=== PATIENT | male | born 1985 | race African-American/Black ===

== ENCOUNTER 2019-01-13 17:10 | Emergency (ER) | payer SELFPAY ==
[~2019-01-13] VITALS: Ht 167.6 cm; Wt 63.5 kg
--- NOTE | 2019-01-13 17:20 | NUR ---
ED Nurse Note: Pt present at ER c/o LUE pain 06/24. pt aao x4 and calm. skin clean and intact and ambulatory with steady gait.
[2019-01-13 17:30] VITALS: BP 152/101
[2019-01-13] MEDS ORDERED: Ketorolac 30mg Inj IM ONE (17:45)
[2019-01-13] MEDS ORDERED: LIDOCAINE700 M1 TP (17:47)
[2019-01-13] MEDS ORDERED: IBUPROFEN600 MG ORAL (17:47)
--- NOTE | 2019-01-13 17:48 | Emergency Room Report ---
History of Present Illness General Chief Complaint: Pain Source: Patient Present Illness HPI 33-year-old male patient presents the ER complaining of left upper extremity pain for the past 2 weeks. Reports that the pain radiates from his neck to his shoulder and down his arm. Reports pain is intermittent. Denies acute injury or trauma. 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 Denies history of diabetes. Denies fever, chest pain, shortness of breath. Does not have any complaints of tiredness contrary to triage report. States his been taking Tylenol twice a day for relief of symptoms. Denies other aggravating or relieving factors. Also complaining of flulike symptoms during this time. Reports subjective fever and chills at home, afebrile in ER. Denies chest pain or shortness of breath. Denies abdominal pain. Denies vomiting or diarrhea. Denies recent travel outside the country. Reports up-to-date on vaccinations. Reports received flu vaccination. Reports that he had recent sexual activity with someone else. Reports lesion on his penis and in his mouth. Reports lesions were painful, states that there was a blister that he popped. Denies dysuria, hematuria, penile discharge. Denies testicular pain or swelling. Denies IV drug use. Denies diabetes. Allergies: Coded Allergies: No Known Allergies (Unverified , 01/13/19) Patient History Past Medical History: see triage record Reviewed Nursing Documentation: PMH: Agreed; PSxH: Agreed Nursing Documentation-PMH Past Medical History: No History, Except For Review of Systems All Other Systems: negative except mentioned in HPI Physical Exam Vital Signs Date Time Temp Pulse Resp B/P (MAP) Pulse Ox O2 Delivery O2 Flow Rate FiO2 01/13/19 17:26 98.8 104 20 152/101 98 Room Air Sp02 EP Interpretation: reviewed, normal General Appearance: well appearing, no apparent distress, alert, GCS 15, non- toxic Head: normocephalic, atraumatic Eyes: bilateral eye normal inspection, bilateral eye PERRL ENT: hearing grossly normal, normal pharynx, no angioedema, normal voice, TMs + canals normal, uvula midline, moist mucus membranes Neck: full range of motion, no bony tend - no bony stepoff Respiratory: lungs clear, normal breath sounds, no rhonchi, no respiratory distress, no accessory muscle use, no wheezing, speaking full sentences Cardiovascular #1: regular rate, rhythm, no edema Cardiovascular #2: 2+ radial (R), 2+ radial (L) Gastrointestinal: non tender, soft, no mass, non-distended, no guarding, no rebound Musculoskeletal: back normal, digits/nails normal, gait/station normal, normal range of motion, non-tender, other - NVI, AIN/PIN/radial nerve intact, axillary nerve intact, cap refill<2seconds, negative Neer impingement, negative Hernandez, negative belly press Neurologic: alert, oriented x3, responsive, motor strength/tone normal, sensory intact Psychiatric: mood/affect normal Skin: no rash, other - Healing herpetic lesions noted on penis and in oropharynx, no crusting Medical Decision Making PA Attestation Dr. Garrett is my supervising Physician whom patient management has been discussed with. Diagnostic Impression: Primary Impression: Cervical radiculopathy Additional Impressions: Encounter for assessment of sexually transmitted disease exposure Upper respiratory infection Herpes ER Course Pt. presents to the ED c/o left upper extremity pain radiating from neck, rash, flu-like symptoms. Ddx considered but are not limited to fracture, sprain, strain, contusion, dislocation, radiculopathy, rotator cuff tendonitis, influenza, viral URI, pneumonia, strep throat, rhinitis, sinusitis, otitis media, otitis externa, herpes, gonorrhea, chlamydia, syphilis. No erythema, no warmth to touch, no fever, nontoxic appearing, low suspicion for septic joint. Soft compartments, no pulselessness, no pallor, no paresthesias, low suspicion for compartment syndrome at this time. Vital signs: are WNL, pt. is afebrile ER COURSE Lungs clear to auscultation, no wheezes, rhonci or rales. patient afebrile. Low suspicion for pneumonia, will not order CXR at this time. no tonsillar exudates, no pharyngeal erythema, history of cough, no fever, no stridor, uvula midline, low suspicion for peritonsillar abscess. Likely viral etiology of symptoms. Symptomatic treatment. drink plenty of fluids. Salt water gargles for sore throat. Followup with PCP for further treatment and/or referral as needed. Physical consistent with obvious cold sore and likely healing herpetic lesion. Will treat patient for herpes lesion and cover for possible STI infection. Will treat with azithromycin, Rocephin and syphilis to cover for possible STI. Advised patient follow-up with STI clinic for further evaluation and treatment. Wear condoms during sexual Provided with pain medication and lidocaine patch. Physical exam benign. Denies acute injury or trauma, does not require x-ray at this time, low suspicion for fracture. Advised patient follow-up as outpatient for MRI or CT for further evaluation of radiculopathy pain. Will provide patient with Rx for Motrin and lidocaine patches at discharge. Patient instructed on RICE method: rest, ice, compression, elevation. Patient instructed on rest, ice and heat. Contact information for orthopedic urgent care provided, follow-up with urgent care if unable to followup with primary care provider and get referral to charge master specialist. Followup with primary care provider. Discuss referral to ortho/pain management/ PT as needed. Discuss further imaging with MRI/CT as needed. DISCHARGE: At this time pt. is stable for d/c to home. Patient is resting comfortably, in no acute distress, nontoxic appearing, talking without difficulty. Will provide printed patient care instructions, and any necessary prescriptions. Patient instructed to follow with primary care provider in 3 - 5 days and to request further follow-up as needed. Care plan and follow up instructions have been discussed with the patient prior to discharge. Take medications as directed. Patient questions asked and answered. Patient reports understanding and agreement to treatment plan. ER precautions given, patient instructed to return to ER immediately for any new or worsening of symptoms. - Please note that this Emergency Department Report was dictated using [employer] wrapper operator technology software, occasionally this can lead to erroneous entry secondary to interpretation by the dictation equipment. Last Vital Signs Date Time Temp Pulse Resp B/P (MAP) Pulse Ox O2 Delivery O2 Flow Rate FiO2 01/13/19 17:26 98.8 104 20 152/101 98 Room Air Status: improved Disposition: HOME, SELF-CARE Condition: Stable Scripts D-Methorphan/PE/Acetaminophen (Sudafed PE Pressure+Pain+Cough) 1 Each Tablet 1 EACH PO BID, #24 TAB Prov: Miguel Cai P.A. 01/13/19 Acyclovir* (ACYCLOVIR*) 200 Mg Capsule 200 MG ORAL FIVE TIMES A DAY for 7 Days, #35 CAP Prov: AyalaMiguel morocho 01/13/19 Lidocaine (Lidocaine) 1 Each Adh..patch 5 % TP DAILY for 7 Days, #7 PATCH Prov: Miguel Cai 01/13/19 Ibuprofen* (MOTRIN*) 600 Mg Tablet 600 MG ORAL Q8H PRN for For Pain, #30 TAB 0 Refills Prov: Miguel Cai 01/13/19 Patient Instructions: Cervical Radiculopathy, [id number], Genital Herpes, Herpes Keratitis, Sexually Transmitted Disease, [id number], Upper Respiratory Infection, Adult, [id number] Additional Instructions: Patient instructed to follow up with primary care provider 3-5 and discuss further referral and MRI imaging at that time. Patient instructed on rest, ice and heat. Do not take muscle relaxant prior to drinking, driving, or operating heavy machinery. Take medications as directed. Patient questions asked and answered. ER precautions given, patient instructed to return to ER immediately for any new or worsening of symptoms. [facility] [address] [facility] [address] [facility], [id number] [email or web address] Dr. Dominic Muhammad DO. Primary care provider. [address] [facility] [place] [address] Followup with primary care provider and followup with STI clinic for further evaluation and treatment. Alert sexual partners for need for evaluation and treatment. Wear condoms during sex. Avoid sexual activity for 2 weeks. Miguel Cai Jan 13, 2019 17:48
--- NOTE | 2019-01-13 17:56 | NUR ---
ER DISCHARGE NOTE: Patient is cleared to be discharged per ERMD, pt is aox4, on room air, with stable vital signs. pt was given dc and prescription instructions, pt was able to verbalize understanding, pt id band removed. pt is able to ambulate with steady gait. pt took all belongings.
--- NOTE | 2019-01-13 18:07 | NUR ---
ED Nurse Note: pt came back with sister as c/o he needs more test. UNA Vaughn is talking to pt.
[2019-01-13] MEDS ORDERED: Bicillin LA 2.4MMU/4ML SYR IM ONE (18:15)
[2019-01-13] MEDS ORDERED: Lidocaine 1% MPF 10mg/ml 5ml INJ ONE (18:15)
[2019-01-13] MEDS ORDERED: Azithromycin 250mg tab ORAL ONE (18:15)
[2019-01-13] MEDS ORDERED: SUDAFED PE PRE1 EACH PO (18:18)
[2019-01-13] MEDS ORDERED: ACYCLOVIR200 MG ORAL (18:18)
[2019-01-13 18:33] VITALS: BP 122/85
--- NOTE | 2019-01-13 18:34 | NUR ---
ER DISCHARGE NOTE: Patient is cleared to be discharged per ERMD, pt is aox4, accompanied by sister, on room air, with stable vital signs. pt was given dc and prescription instructions, pt was able to verbalize understanding and agreed with discharge. pt is able to ambulate with steady gait. pt took all belongings.
== END 2019-01-13 18:33 | disposition home or self-care (01) ==
LOC: EMR 17:41
DX: M54.12 Radiculopathy, cervical region (principal); J06.9 Acute upper respiratory infection, unspecified; B00.9 Herpesviral infection, unspecified; Z20.2 Contact with and (suspected) exposure to infections with a predominantly sexual mode of transmission
CPT/HCPCS: 96372; 99283; J0696; J1885